=== PATIENT | female | born 1955 | race Caucasian/White ===

== ENCOUNTER → 2016-08-14 | Outpatient (CLI) | payer BC ==
[~2016-08-14] MED LIST: ACET-749 PO; ASPI81TA28 PO; BNC20 PO; CHOL20005 PO; FLV1 PO; HYDR-5688 PO; HYDR25TA5 PO; MAGN400T6 PO; OMEGCAP2 PO; OPTIRAY 320 IV PRN; POTA20TA13 PO; PRD/1 PO
[2016-08-14 18:05] LABS: CREATININE 0.88 mg/dl (0.60-1.20)
--- NOTE | 2016-08-14 18:37 | DIAGNOSTIC IMAGING REPORT ---
CT SCAN OF THE ABDOMEN AND PELVIS WITH IV CONTRAST CLINICAL HISTORY: Left lower quadrant abdominal pain. COMPARISON STUDY: Abdominal CT dated 12/08/2013. Abdominal ultrasound dated 12/09/2013. TECHNIQUE: Following the IV administration of 120 cc of Optiray 320, CT scan of the abdomen and pelvis is performed from the lung bases to the proximal femora. Images are reviewed in the axial, sagittal, and coronal planes. IV contrast was administered without complication. Automated dose control exposure was utilized. CT DOSE: 592.62 mGy.cm FINDINGS: Lung bases: The heart is normal in size and without pericardial effusion. The lung bases are clear noting dependent atelectasis. There is a tiny hiatal hernia. Liver: The contrast-enhanced liver is enlarged, measuring 20 cm in length. The liver demonstrates diffusely diminished attenuation consistent with hepatic steatosis. There is no intrahepatic biliary ductal dilatation. The hepatic veins and portal veins are patent. Gallbladder: Surgically absent noting clips in the gallbladder fossa. Spleen: Normal in size and attenuation. Pancreas: Unremarkable. Adrenal glands: Unremarkable. Kidneys: The contrast enhanced kidneys demonstrate mild cortical atrophy and are without hydronephrosis. The kidneys enhance symmetrically. There are numerous bilateral renal cysts (greater than 10) measuring up to 3.8 cm. Additional subcentimeter cortical hypodensities also likely represent cysts but are too small for definitive characterization. Abdominal vasculature: The abdominal aorta is normal in course and caliber noting moderate atherosclerotic calcification. Bowel: The small bowel and colon are normal in course and caliber. There is mild to moderate sigmoid diverticulosis. There is wall thickening end edema with associated pericolonic inflammation and fluid seen involving the proximal sigmoid colon consistent with acute diverticulitis. There is no evidence of abscess. The appendix is not visualized. Peritoneum: There is no intraperitoneal free air or abdominal ascites. There is a small fat-containing umbilical hernia. Lymphadenopathy: None. Pelvic viscera: The bladder, uterus, and adnexa are normal as visualized. Numerous pelvic phleboliths are observed. Trace free fluid in the pelvis is likely on a reactive basis. Skeletal structures: The skeletal structures are osteopenic. There is mild lumbosacral spondylosis. No lytic or blastic lesions are seen. IMPRESSION: 1. There is mild to moderate sigmoid diverticulosis with evidence of acute sigmoid diverticulitis. No intraperitoneal free air is seen and there is no evidence of diverticular abscess. 2. Hepatomegaly and hepatic steatosis. 3. Additional findings as above. Electronically signed by: Ten Ohara M.D. 08/14/2016 6:36 PM Dictated Date/Time: 08/14/2016 6:29 PM
== END | disposition home or self-care (01) ==
LOC: C.CTS 17:06
PROVIDERS: ATTEND Physician Assistant
DX: R10.32 Left lower quadrant pain (principal); R19.7 Diarrhea, unspecified; R11.0 Nausea; K57.90 Diverticulosis of intestine, part unspecified, without perforation or abscess without bleeding; R16.0 Hepatomegaly, not elsewhere classified; K76.0 Fatty (change of) liver, not elsewhere classified

== ENCOUNTER → 2016-12-07 | Outpatient (CLI) | payer BC ==
[~2016-12-07] MED LIST changes: -OPTIRAY 320 IV PRN
--- NOTE | 2016-12-07 13:29 | DIAGNOSTIC IMAGING REPORT ---
CHEST 2 VIEWS ROUTINE CLINICAL HISTORY: PNEUMONIA, UNSPECIFIED ORGANISM COMPARISON STUDY: No previous studies for comparison. FINDINGS: Poorly defined parenchymal infiltrate right base. Lungs otherwise appear clear. No evidence for cardiac enlargement. Diaphragms smooth. IMPRESSION: Small poorly defined parenchymal infiltrate right base. The above report was generated using voice recognition software. It may contain grammatical, syntax or spelling errors. Electronically signed by: Michael Cortes M.D. 12/07/2016 1:28 PM Dictated Date/Time: 12/07/2016 1:27 PM
== END | disposition home or self-care (01) ==
LOC: C.RAD 13:10
PROVIDERS: ATTEND Physician Assistant
DX: J18.9 Pneumonia, unspecified organism (principal)

== ENCOUNTER → 2017-01-11 | Outpatient (CLI) | payer BC ==
--- NOTE | 2017-01-11 12:25 | DIAGNOSTIC IMAGING REPORT ---
CHEST 2 VIEWS ROUTINE CLINICAL HISTORY: R07.89 OTHER CHEST PAIN chest pain. Dyspnea. COMPARISON STUDY: 12/07/2016 FINDINGS: Minimal atelectatic change left base. Lungs otherwise appear clear. Diaphragms smooth. IMPRESSION: Minimal atelectasis left base. Otherwise negative study. The above report was generated using voice recognition software. It may contain grammatical, syntax or spelling errors. Electronically signed by: Michael Cortes M.D. 01/11/2017 12:24 PM Dictated Date/Time: 01/11/2017 12:23 PM
== END | disposition home or self-care (01) ==
LOC: C.RAD1850 11:54
PROVIDERS: ATTEND Student in an Organized Health Care Education/Training Program
DX: R07.89 Other chest pain (principal)

== ENCOUNTER → 2017-09-29 | Outpatient (CLI) | payer BC ==
[~2017-09-29] MED LIST changes: -ACET-749 PO; +ACET300T3 PO
== END | disposition home or self-care (01) ==
LOC: C.RDSM 08:08
PROVIDERS: ATTEND Orthopaedic Surgery Sports Medicine
DX: M25.561 Pain in right knee (principal); M25.562 Pain in left knee